=== PATIENT | female | born 1980 | race African-American/Black ===

== ENCOUNTER 2018-01-20 09:03 | Emergency (ER) | payer OTHER ==
[~2018-01-20] VITALS: Ht 157.5 cm; Wt 62.8 kg
[2018-01-20 09:03] VITALS: BP 99/71
--- NOTE | 2018-01-20 09:39 | PHYS DOC ---
Past History Past Medical History: Asthma Past Surgical History: No Surgical History Alcohol Use: None Drug Use: None Adult General Chief Complaint Chief Complaint: SORE THROAT HPI HPI Patient is a 37 year old female who presents with complaining of nasal congestion and sore throat for 4 days without fever, nausea and vomiting, neck pain. She had sick contacts at home. Patient was to make sure she doesn't have a strep infection. Review of Systems Review of Systems Constitutional: Denies fever or chills [] Eyes: Denies change in visual acuity, redness, or eye pain [] HENT: Reports nasal congestion or sore throat Respiratory: Denies cough or shortness of breath [] Cardiovascular: No additional information not addressed in HPI [] GI: Denies abdominal pain, nausea, vomiting, bloody stools or diarrhea [] : Denies dysuria or hematuria [] Musculoskeletal: Denies back pain or joint pain [] Integument: Denies rash or skin lesions [] Neurologic: Denies headache, focal weakness or sensory changes [] Endocrine: Denies polyuria or polydipsia [] All other systems were reviewed and found to be within normal limits, except as documented in this note. Allergies Allergies Allergies Coded Allergies Type Severity Reaction Last Updated Verified No Known Drug Allergies 01/20/18 No Physical Exam Physical Exam Constitutional: Well developed, well nourished, no acute distress, non-toxic appearance. [] HENT: Normocephalic, atraumatic, bilateral external ears normal, oropharynx moist, no oral exudates, nose normal. [] Eyes: PERRLA, EOMI, conjunctiva normal, no discharge. [] Neck: Normal range of motion, no tenderness, supple, no stridor. [] Cardiovascular:Heart rate regular rhythm, no murmur [] Lungs & Thorax: Bilateral breath sounds clear to auscultation [] Abdomen: Bowel sounds normal, soft, no tenderness, no masses, no pulsatile masses. [] Skin: Warm, dry, no erythema, no rash. [] Back: No tenderness, no CVA tenderness. [] Extremities: No tenderness, no cyanosis, no clubbing, ROM intact, no edema. [] Neurologic: Alert and oriented X 3, normal motor function, normal sensory function, no focal deficits noted. [] Psychologic: Affect normal, judgement normal, mood normal. [] Current Patient Data Vital Signs Vital Signs Date Time Temp Pulse Resp B/P (MAP) Pulse Ox O2 Delivery O2 Flow Rate FiO2 01/20/18 09:03 99.3 95 18 100 Room Air EKG EKG [] Radiology/Procedures Radiology/Procedures [] Course & Med Decision Making Course & Med Decision Making Pertinent Labs reviewed. (See chart for details) discharge: I've spoken with the patient and/or caregivers. I've explained the patient's condition, diagnosis and treatment plan based on information available to me at this time. I've answered the patient's and/or caregivers questions and addressed any concerns. The patient and/or caregivers have a good understanding the patient's diagnosis, condition and treatment plan as can be expected at this point. Vital signs have been stabilized. The patient's condition is stable for discharge from the emergency department. The patient will pursue further outpatient evaluation with her primary care provider or other designated consulting physician as outlined in the discharge instructions. Patient and/or caregivers are agreeable to this plan of care and follow-up instructions have been explained in detail. The patient and/or caregivers have received these instructions in written format and expressed understanding of these discharge instructions. The patient and her caregivers are aware that if any significant change in condition or worsening of symptoms should prompt him to immediately return to this of the closest emergency department. If an emergent department is not readily available I would encourage him to call 911. Dragon Disclaimer Dragon Disclaimer This electronic medical record was generated, in whole or in part, using a voice recognition dictation system. Departure Departure: Impression: Primary Impression: Viral upper respiratory infection Disposition: HOME, SELF-CARE (at 0938) Condition: STABLE Referrals: NAKITA SERNA MD (PCP) Patient Instructions: Cough, Adult, Upper Respiratory Infection, Adult Additional Instructions: Drink plenty of liquids Follow-up with your primary care physician in 3-5 days Return to ER if not getting better VANESSA POLO MD Jan 20, 2018 09:39
== END 2018-01-20 09:59 | disposition home or self-care (01) ==
LOC: ER 09:03
DX: J06.9 Acute upper respiratory infection, unspecified (principal); B97.89 Other viral agents as the cause of diseases classified elsewhere; J45.909 Unspecified asthma, uncomplicated
CPT/HCPCS: 87070; 87880; 99283

== ENCOUNTER 2018-07-24 08:03 | Emergency (ER) | payer OTHER ==
[~2018-07-24] VITALS: Ht 157.5 cm; Wt 62.6 kg
[2018-07-24 08:41] VITALS: BP 105/72
[2018-07-24] MEDS ORDERED: ONDANSETRON ODT 4 MG TAB.RAPDIS PO ONE (08:45)
[2018-07-24] MEDS ORDERED: MECLIZINE 12.5 MG TABLET. PO PRN (08:45)
[2018-07-24] MEDS ORDERED: MECL25TA3 PO (08:49)
[2018-07-24] MEDS ORDERED: ONDA4TAB7 PO (08:49)
--- NOTE | 2018-07-24 08:50 | PHYS DOC ---
Past History Past Medical History: Asthma, Migraines Past Surgical History: No Surgical History Alcohol Use: None Drug Use: None Adult General Chief Complaint Chief Complaint: DIZZY/LIGHT HEADED [facility] HPI Patient is a 38-year-old female who presents with dizziness for the past 2 days. She describes it as being an unsteady feeling, more rotary, worse with changing head position. No worse with change in body position such as going from sitting to standing. There is nausea with this, no vomiting. No headache currently. Patient had a headache 2 days ago, consistent with her usual headache pattern that improved with [id number] medication. Not worst headache of life. No visual changes. No tinnitus. No head trauma. [] Review of Systems Review of Systems Constitutional: Denies fever or chills [] Eyes: Denies change in visual acuity, redness, or eye pain [] HENT: Denies nasal congestion or sore throat [] Respiratory: Denies cough or shortness of breath [] Cardiovascular: No additional information not addressed in HPI [] GI: Denies abdominal pain, bloody stools or diarrhea [] : Denies dysuria or hematuria [] Musculoskeletal: Denies back pain or joint pain [] Integument: Denies rash or skin lesions [] Neurologic: Denies headache, focal weakness or sensory changes [] Endocrine: Denies polyuria or polydipsia [] All other systems were reviewed and found to be within normal limits, except as documented in this note. Allergies Allergies Allergies Coded Allergies Type Severity Reaction Last Updated Verified No Known Drug Allergies 01/20/18 No Physical Exam Physical Exam Constitutional: Well developed, well nourished, no acute distress, non-toxic appearance. [] HENT: Normocephalic, atraumatic, bilateral external ears normal, TMs are clearno blood, no fluid, oropharynx moist, no oral exudates, nose normal. [] Eyes: PERRLA, EOMI, conjunctiva normal, no discharge. [] Neck: Normal range of motion, no tenderness, supple, no stridor. [] Cardiovascular:Heart rate regular rhythm, no murmur [] Lungs & Thorax: Bilateral breath sounds clear to auscultation [] Abdomen: Bowel sounds normal, soft, no tenderness, no masses, no pulsatile masses. [] Skin: Warm, dry, no erythema, no rash. [] Back: No tenderness, no CVA tenderness. [] Extremities: No tenderness, no cyanosis, no clubbing, ROM intact, no edema. [] Neurologic: Alert and oriented X 3, normal motor function, normal sensory function, no focal deficits noted. Hallpike was positive for fast beat to the right. [] Psychologic: Affect normal, judgement normal, mood normal. [] Current Patient Data Vital Signs Vital Signs Date Time Temp Pulse Resp B/P (MAP) Pulse Ox O2 Delivery O2 Flow Rate FiO2 07/24/18 08:13 98.7 94 16 99 Room Air EKG EKG [] Radiology/Procedures Radiology/Procedures [] Course & Med Decision Making Course & Med Decision Making Pertinent Labs and Imaging studies reviewed. (See chart for details) Medical decision making: Patient appears to have a peripheral vertigo. No evidence of stroke syndrome, no evidence meningitis, encephalitis, mastoiditis. No evidence of intractable nausea or vomiting.[] Dragon Disclaimer Dragon Disclaimer This electronic medical record was generated, in whole or in part, using a voice recognition dictation system. Departure Departure: Impression: Primary Impression: Peripheral vertigo Disposition: 01 HOME, SELF-CARE Condition: IMPROVED Referrals: NAKITA SERNA MD (PCP) Follow-up in 2 days Patient Instructions: Vertigo Additional Instructions: Drink plenty of fluids. Follow-up with your regular doctor in 2 days. Return to the ER if unable to tolerate liquids or any other concerns. Scripts Ondansetron Hcl (ZOFRAN) 4 Mg Tablet 1 TAB PO Q6HRS for nausea or vomiting, #20 TAB Prov: DENISHA MOREJON DO 07/24/18 Meclizine Hcl (MECLIZINE HCL) 25 Mg Tablet 1 TAB PO PRN TID for vertigo, #30 TAB Prov: DENISHA MOREJON DO 07/24/18 Problem Qualifiers Primary Impression: Peripheral vertigo Laterality: unspecified laterality Qualified Codes: H81.399 - Other peripheral vertigo, unspecified ear DENISHA MOREJON DO Jul 24, 2018 08:50
== END 2018-07-24 09:06 | disposition home or self-care (01) ==
LOC: ER 08:03
DX: H81.399 Other peripheral vertigo, unspecified ear (principal); G43.909 Migraine, unspecified, not intractable, without status migrainosus; J45.909 Unspecified asthma, uncomplicated
CPT/HCPCS: 99283; J8597; Q0162